=== PATIENT | male | born 1945 | race Caucasian/White ===

== ENCOUNTER 2017-09-29 11:05 | Observation (INO) | payer MEDICARE, OTHER ==
[~2017-09-29] VITALS: Ht 175.3 cm; Wt 111.1 kg
[2017-09-29] MEDS ORDERED: AMPICILLIN SOD/SULBACTAM 3GM 100 ML IV STA (11:20)
[2017-09-29] MEDS ORDERED: IBUPROFEN 400 MG TAB PO PRN (11:45)
[2017-09-29] MEDS ORDERED: ACETAMINOPHEN/CODEINE 300MG - 30MG TAB PO PRN (11:45)
[2017-09-29] MEDS ORDERED: ACETAMINOPHEN 325 MG TAB PO PRN (11:45)
--- NOTE | 2017-09-29 11:58 | Diagnostic Imaging Report ---
PROCEDURE:HAND RIGHT 3 VIEWS AP \T\ LAT COMPARISON:None. INDICATIONS:CAT BITE, RASH, CELLULITIS FINDINGS: 3 views of the right hand (AP, lateral, and oblique) There are no fractures, dislocations, lytic or blastic lesions. The bones are well-mineralized. There are mild degenerative changes at the DIP joints and at the basilar joint of the thumb. Tiny corticated ossicle adjacent to the distal phalanx of the index finger may be related to remote trauma. The soft-tissues are unremarkable. CONCLUSION: No acute abnormality of the right hand. Dictated by: Bogdan Armas M.D. on 09/29/2017 at 11:59 Electronically approved by: Bogdan Armas M.D. on 09/29/2017 at 11:59
[2017-09-29] MEDS ORDERED: AMPICILLIN SOD/SULBACTAM 3GM 100 ML IV SCH ×2 (12:00→18:00)
--- OUTSIDE RECORDS SUMMARY | 2017-09-29 12:12 | XMS REPORT ---
[facility] Address Unknown Phone Unavailable Care Team Providers Care Sox Analyst Name Role Phone TESHA WAHL Unavailable Unavailable Problems This patient has no known problems. Allergies, Adverse Reactions, Alerts This patient has no known allergies or adverse reactions. Medications This patient has no known medications. Results Test Description Test Time Test Comments Text Results Atomic Results Result Comments HAND 3+ VIEWS RIGHT [place] [id number] Patient Name: CADENCE SOTOMAYOR MR #: [id number] : 1945 Age/Sex: 71/M Req #: [id number] Adm Physician: Ordered by: KAITLIN HORNE [employer]CHIT[employer] Report #: [id number] Location: ER Room/Bed: Procedure: [id number] DX/HAND 3+ VIEWS RIGHT Exam Date: 09/29/17 Exam Time: 1130 REPORT STATUS: Signed PROCEDURE: HAND RIGHT 3 VIEWS AP T LAT COMPARISON: None. INDICATIONS: CAT BITE , RASH, CELLULITIS FINDINGS: 3 views of the right hand (AP, lateral, and oblique) There are no fractures, dislocations, lytic or blastic lesions. The bones are well-mineralized. There are mild degenerative changes at the DIP joints and at the basilar joint of the thumb. Tiny corticated ossicle adjacent to the distal phalanx of the index finger may be related to remote trauma. The soft-tissues are unremarkable. CONCLUSION: No acute abnormality of the right hand. Dictated by: Phyllis Armas M.D. on 09/29/2017 at 11:59 Electronically approved by: Phyllis Armas M.D. on 09/29/2017 at 11:59 Dictated By: PHYLLIS ARMAS MD [id number] Transcribed By: EPHRAIM on 09/29/17 1159 COPY TO: KAITLIN HORNE NP
[2017-09-29] MEDS ORDERED: TETANUS/DIPHTHERIA TOX ADULT 0.5 ML SYR IM ONE (12:15)
[2017-09-29] MEDS ORDERED: DEXTROSE 50% SYRINGE 50 ML IV PRN (12:15)
[2017-09-29 13:15] VITALS: BP 140/76
[2017-09-29 13:21] VITALS: BP 140/76
[2017-09-29 13:25] LABS: BASOPHILS # (AUTO) 0.1 (0.0-0.1); BASOPHILS % 0.7 % (0.0-1.0); EOSINOPHILS # (AUTO) 0.1 (0.0-0.4); EOSINOPHILS % 0.8 % (0.0-6.0); HEMATOCRIT 43.6 % (38.2-49.6); HEMOGLOBIN 14.5 g/dL (14.0-18.0); LYMPHOCYTES % 12.7 % (18.0-39.1); MEAN CORPUSCULAR HEMOGLOBIN 27.7 pg (28-32); MEAN CORPUSCULAR HGB CONC 33.3 g/dL (31-35); MEAN CORPUSCULAR VOLUME 83.4 fL (81-99); MONOCYTES # (AUTO) 0.5 (0.2-0.8); MONOCYTES % 7.1 % (4.4-11.3); NEUTROPHILS # (AUTO) 5.9 (2.1-6.9); NEUTROPHILS % 78.2 % (38.7-80.0); PLATELET COUNT 181 x10e3/uL (140-360); RED BLOOD COUNT 5.23 x10e6/uL (4.3-5.7); RED CELL DISTRIBUTION WIDTH 13.8 % (11.7-14.4)
[2017-09-29 13:43] LABS: ALBUMIN 4.1 g/dL (3.5-5.0); ALBUMIN/GLOBULIN RATIO 1.2 (0.8-2.0); ANION GAP 13.1 mmol/L (8-16); CALCIUM 9.6 mg/dL (8.4-10.2); CREATININE, SERUM 1.84 mg/dL (0.72-1.25); POTASSIUM 4.1 mmol/L (3.5-5.1)
[2017-09-29] MEDS: AMPICILLIN SOD/SULBACTAM 3GM 100 ML IV SCH ×2 (14:15→20:48)
[2017-09-29] MEDS: INSULIN REGULAR, HUMAN 100 UNIT/1 ML 3ML VIAL SQ SCH ×2 (15:58→20:49)
[2017-09-29 15:59] VITALS: BP 135/73
[2017-09-29 20:20] VITALS: BP 140/72
[2017-09-29] MEDS ORDERED: SODIUM CHLORIDE 0.9% 250ML 250 ML ONE (20:41)
[2017-09-29 21:35] VITALS: BP 140/72
[2017-09-30 00:25] VITALS: BP 142/71
[2017-09-30] MEDS: AMPICILLIN SOD/SULBACTAM 3GM 100 ML IV SCH ×4 (01:32→20:07)
[2017-09-30 05:36] VITALS: BP 138/72
[2017-09-30] MEDS: VANCOMYCIN 1GM/NS 250 ML 250 ML IV SCH ×2 (06:10→18:00)
[2017-09-30 07:24] LABS: ALBUMIN 3.3 g/dL (3.5-5.0); ANION GAP 11.1 mmol/L (8-16); CALCIUM 9.2 mg/dL (8.4-10.2); CREATININE, SERUM 1.86 mg/dL (0.72-1.25); POTASSIUM 4.1 mmol/L (3.5-5.1)
[2017-09-30 08:00] VITALS: BP 124/67
[2017-09-30] MEDS: INSULIN REGULAR, HUMAN 100 UNIT/1 ML 3ML VIAL SQ SCH ×4 (08:30→20:41)
[2017-09-30 12:00] VITALS: BP 146/78
[2017-09-30 16:00] VITALS: BP 152/76
[2017-09-30] MEDS ORDERED: CRESTOR10 MG PO (18:36)
[2017-09-30] MEDS ORDERED: TRULICITY SQ (18:36)
[2017-09-30] MEDS ORDERED: PANTOPRAZOLE SO40 MG PO (18:36)
[2017-09-30] MEDS ORDERED: FUROSEMIDE40 MG PO (18:36)
[2017-09-30] MEDS ORDERED: GLIMEPIRIDE2 MG PO (18:36)
[2017-09-30] MEDS ORDERED: LEXAPRO10 MG PO (18:36)
[2017-09-30] MEDS ORDERED: HUMALOG100 UNIT/1 (18:36)
[2017-09-30] MEDS ORDERED: CLOPIDOGREL75 MG PO (18:36)
[2017-09-30] MEDS ORDERED: [UNRECOGNIZED DRUG - OTHER] PO (18:36)
[2017-09-30] MEDS ORDERED: DIOVAN320 MG PO (18:36)
[2017-09-30] MEDS ORDERED: AZITHROMYCIN250 MG PO (18:36)
[2017-09-30] MEDS ORDERED: PROPRANOLOL HCL40 MG PO (18:36)
[2017-09-30] MEDS ORDERED: LEVOTHYROXINE50 MCG PO (18:36)
[2017-09-30] MEDS ORDERED: FENOFIBRATE145 MG PO (18:36)
[2017-09-30] MEDS ORDERED: BASAGLAR SQ (18:36)
[2017-09-30 20:00] VITALS: BP 148/73
[2017-10-01] VITALS (8 sets, daily range): BP systolic 141–154; BP diastolic 71–95
[2017-10-01] MEDS: AMPICILLIN SOD/SULBACTAM 3GM 100 ML IV SCH ×4 (01:12→20:21)
[2017-10-01] MEDS: VANCOMYCIN 1GM/NS 250 ML 250 ML IV SCH ×2 (05:47→18:00)
[2017-10-01] MEDS: LEVOTHYROXINE SODIUM 100 MCG TAB PO SCH (06:30)
[2017-10-01] MEDS: INSULIN REGULAR, HUMAN 100 UNIT/1 ML 3ML VIAL SQ SCH ×2 (07:30→11:30)
[2017-10-01] MEDS: FENOFIBRATE 145 MG TAB PO SCH (09:00)
[2017-10-01] MEDS: ESCITALOPRAM OXALATE 10 MG TAB PO SCH (09:00)
[2017-10-01] MEDS ORDERED: LEVOTHYROXINE SODIUM 50 MCG TAB PO SCH (09:00)
[2017-10-01] MEDS: GLIMEPIRIDE 2 MG TAB PO SCH (09:00)
[2017-10-01] MEDS: CLOPIDOGREL BISULFATE 75 MG TAB PO SCH (09:00)
[2017-10-01] MEDS: PROPRANOLOL HCL 40 MG TAB PO SCH (09:00)
[2017-10-01] MEDS: PANTOPRAZOLE SOD 40 MG TABEC PO SCH (09:00)
[2017-10-01] MEDS: FUROSEMIDE 40 MG TAB PO SCH (10:10)
[2017-10-01] MEDS ORDERED: DEXTROSE 50% SYRINGE 50 ML IV PRN (13:15)
[2017-10-01] MEDS ORDERED: SODIUM CHLORIDE 0.9% 250ML 250 ML ONE (14:46)
[2017-10-01] MEDS: INSULIN LISPRO 100 UNIT/1 ML 3ML VIAL SQ SCH ×2 (16:30→21:00)
[2017-10-01] MEDS: SIMVASTATIN 20 MG TAB PO SCH (20:21)
[2017-10-01] MEDS ORDERED: SIMVASTATIN 40 MG TAB PO SCH (21:00)
[2017-10-02] VITALS (8 sets, daily range): BP systolic 128–164; BP diastolic 67–81
[2017-10-02] MEDS: AMPICILLIN SOD/SULBACTAM 3GM 100 ML IV SCH ×4 (01:17→20:31)
[2017-10-02] MEDS: LEVOTHYROXINE SODIUM 100 MCG TAB PO SCH (05:38)
[2017-10-02] MEDS: VANCOMYCIN 1GM/NS 250 ML 250 ML IV SCH ×2 (05:38→18:02)
[2017-10-02] MEDS: INSULIN LISPRO 100 UNIT/1 ML 3ML VIAL SQ SCH ×4 (07:30→20:31)
[2017-10-02] MEDS: GLIMEPIRIDE 2 MG TAB PO SCH (09:00)
[2017-10-02] MEDS: PANTOPRAZOLE SOD 40 MG TABEC PO SCH (09:33)
[2017-10-02] MEDS: FUROSEMIDE 40 MG TAB PO SCH (09:33)
[2017-10-02] MEDS: ESCITALOPRAM OXALATE 10 MG TAB PO SCH (09:33)
[2017-10-02] MEDS: FENOFIBRATE 145 MG TAB PO SCH (09:33)
[2017-10-02] MEDS: CLOPIDOGREL BISULFATE 75 MG TAB PO SCH (09:33)
[2017-10-02] MEDS: PROPRANOLOL HCL 40 MG TAB PO SCH (09:33)
[2017-10-02] MEDS: SIMVASTATIN 20 MG TAB PO SCH (20:31)
[2017-10-03] VITALS: BP_SYST 176; BP_SYST 189; BP_DIAS 82; BP_DIAS 90
[2017-10-03 01:29] VITALS: BP 165/74
[2017-10-03] MEDS: AMPICILLIN SOD/SULBACTAM 3GM 100 ML IV SCH ×2 (01:31→08:00)
[2017-10-03 04:00] VITALS: BP 157/81
[2017-10-03] MEDS: LEVOTHYROXINE SODIUM 100 MCG TAB PO SCH (05:50)
[2017-10-03] MEDS: VANCOMYCIN 1GM/NS 250 ML 250 ML IV SCH (06:24)
[2017-10-03 07:15] VITALS: BP 161/82
[2017-10-03] MEDS: INSULIN LISPRO 100 UNIT/1 ML 3ML VIAL SQ SCH (07:30)
[2017-10-03 08:02] VITALS: BP 161/82
[2017-10-03] MEDS: GLIMEPIRIDE 2 MG TAB PO SCH (09:07)
[2017-10-03] MEDS: FENOFIBRATE 145 MG TAB PO SCH (09:07)
[2017-10-03] MEDS: PANTOPRAZOLE SOD 40 MG TABEC PO SCH (09:07)
[2017-10-03] MEDS: FUROSEMIDE 40 MG TAB PO SCH (09:07)
[2017-10-03] MEDS: PROPRANOLOL HCL 40 MG TAB PO SCH (09:07)
[2017-10-03] MEDS: CLOPIDOGREL BISULFATE 75 MG TAB PO SCH (09:07)
[2017-10-03] MEDS: ESCITALOPRAM OXALATE 10 MG TAB PO SCH (09:07)
[2017-10-03] MEDS ORDERED: AUGMENTIN 875-1 EACH PO (11:06)
[2017-10-03 11:51] VITALS: BP 144/77
== END 2017-10-03 12:00 | disposition home or self-care (01) ==
LOC: ER 11:05 → ERHOLD 12:09 → MED/SURG3 13:07
PROVIDERS: ADMIT Internal Medicine; ATTEND Internal Medicine
DX: S60.571A Other superficial bite of hand of right hand, initial encounter (principal); W55.01XA Bitten by cat, initial encounter; L03.113 Cellulitis of right upper limb; E11.22 Type 2 diabetes mellitus with diabetic chronic kidney disease; I12.9 Hypertensive chronic kidney disease with stage 1 through stage 4 chronic kidney disease, or unspecified chronic kidney disease; N18.3 Chronic kidney disease, stage 3 (moderate); Z95.5 Presence of coronary angioplasty implant and graft
CPT/HCPCS: 36415 ×5; 73130; 80053 ×2; 80061; 80202 ×2; 82948 ×5; 83036; 83735; 85025; 87040; 90714; 96367 ×2; 99283; G0378 ×5; J0295 ×4; J3370 ×4; J7050 ×2